=== PATIENT | male | born 1940 | race Caucasian/White ===

== ENCOUNTER 2020-12-06 15:20 | Outpatient (CLI) | payer MEDICARE, OTHER ==
[2020-12-06 17:26] LABS: Hemoglobin 7.7 g/dL (13.5-17.5); Mean Corpuscular HGB CONC 30.9 g/dL (32.0-36.0); Mean Corpuscular Hemoglobin 27.9 pg (27.0-33.0); Mean Corpuscular Volume 90.2 fl (81.2-95.1); Mean Platelet Volume 8.9 fl (7.4-10.4); Platelet Count 266 10x3/uL (150-450); RBC Distribution Width 21.1 % (11.5-14.5); Red Blood Cell (RBC) Count 2.76 10x6/uL (4.32-5.72); White Blood Cell (WBC) Count 6.1 10x3/uL (3.5-10.5)
[2020-12-06 17:37] LABS: Anion Gap 17 mmol/L (10-20); BUN (Urea Nitrogen) 33 mg/dL (8.4-25.7); Calc. Creatinine Clearance 0 mL/min (70-130); Calcium 9.3 mg/dL (7.8-10.44); Carbon Dioxide 24 mmol/L (23-31); Chloride 101 mmol/L (98-107); Glucose 137 mg/dL (83-110); Potassium 3.8 mmol/L (3.5-5.1)
[2020-12-06 17:40] LABS: Sodium 138 mmol/L (136-145)
[2020-12-07 07:54] LABS: SARS-CoV-2 PCR by NAA Not Detected (NotDetected)
== END 2020-12-06 15:21 | disposition home or self-care (01) ==
LOC: CSHLAB 15:20
PROVIDERS: ATTEND Orthopaedic Surgery
DX: Z01.818 Encounter for other preprocedural examination (principal); Z20.822 Contact with and (suspected) exposure to COVID-19; T84.098A Other mechanical complication of other internal joint prosthesis, initial encounter; Z96.611 Presence of right artificial shoulder joint
CPT/HCPCS: 80048; 85027; 93005; 93010; U0003; U0005